=== PATIENT | male | born 1970 | race Caucasian/White ===

== ENCOUNTER → 2016-06-23 | Day surgery (SDC) | payer BC ==
[~2016-06-23] MED LIST: IBUPROFEN800 MG PO; NAPROSYN500 MG PO; NEXIUM PO; NO MEDICATIONS; PRILOSEC; SEROQUEL; TYLENOL; VICODIN 5/1 TAB 5/50 PO
--- NOTE | ~2016-06-23 | OR ---
Unit #: [id number] #: [id number] Patient: SHARRON CARLOS [id number] [address] [address] [id number] MR#: [id number] NAME: SHARRON CARLOS ROOM: Date of Procedure: 06/23/2016 Admission Date: 06/23/2016 Surgeon: Stephon Stephenson M.D. : 1970 Attending Physician: Stephon Stephenson M.D. Primary Care Physician: Alfred Mcelroy M.D. OPERATIVE REPORT PREOPERATIVE DIAGNOSES 1. Reflux symptoms resistant to medications. 2. Intermittent rectal bleeding. 3. Abdominal swelling and pressure. POSTOPERATIVE DIAGNOSES 1. Reflux symptoms resistant to medications. 2. Intermittent rectal bleeding. 3. Abdominal swelling and pressure. PROCEDURES PERFORMED 1. Esophagogastroduodenoscopy. 2. Biopsy of antrum for Helicobacter pylori testing. 3. Colonoscopy to cecum. ANESTHESIA Monitored anesthesia care. FINDINGS The patient was found on upper endoscopy to have a small hiatal hernia, mild distal gastritis, and mild distal esophagitis. On colonoscopy, the patient had normal colon to the cecum. SPECIMENS Sent to pathology. COMPLICATIONS None apparent. CONDITION The patient tolerated the procedure well. INDICATIONS FOR PROCEDURE The patient is a 46-year-old white male, who has had some intermittent reflux symptoms resistant to medications as well as abdominal swelling and pressure. He has had some intermittent bright red blood on the toilet paper. He has a family history of colon cancer. He presents at this time for evaluation by upper as well as lower endoscopy. DESCRIPTION OF PROCEDURE After obtaining informed consent, the patient was brought to the endoscopy suite and after adequate monitored anesthesia care, had the endoscope Unit #: [id number] #: [id number] Patient: SHARRON CARLOS placed through the mouth into the upper esophagus under direct vision. It was advanced to the second portion of the duodenum without difficulty with the lumen always in view. The duodenum was within normal limits, the second and third portion as well as the duodenal bulb. The pylorus opened normally. There was some mild distal gastritis present and a biopsy was obtained for Helicobacter pylori testing. On retroflexing back to the GE junction, there was a small to medium size hiatal hernia seen. No other abnormalities were found in the proximal third, middle third, or incisura. On pulling back above the GE junction, there was no stenosis, stricture, or neoplasm seen. There was some distal esophagitis. The remaining portion of the esophagus was within normal limits. Laryngeal structures were grossly normal as viewed from above. At this point in time, the colonoscope was placed through the anus and slowly advanced to the level of the cecum without difficulty with the lumen always in view. The patient had somewhat poor prep, but it was mostly thick green liquid and were able to irrigate out the vast majority to be able to see. The cecum was normal as was the ileocecal valve. The ascending colon was normal as was the hepatic flexure, transverse colon, splenic flexure, descending colon, sigmoid colon, and rectum. No diverticula were seen. No neoplasm or inflammatory changes were seen. On retroflexing in the rectum to the anorectal junction, the patient was found to have no significant abnormalities. On pulling back through the anal canal, there was no obvious abnormality seen. On digital examination, there was good sphincter tone, no masses palpable. The patient went from the endoscopy suite to the recovery area in stable condition. RECOMMENDATIONS High-fiber diet, lots of liquids, tucks or wipes p.r.n. Gastroesophageal reflux sheet given. Follow up as needed. Dictated by... Keith Redman/dorita TD: 06/23/2016 21:27 JOB #: [id number] CC: [facility] OPERATIVE REPORT X Stephon Stephenson MD X PROCEDURE OPERATIVE NOTE
== END | disposition home or self-care (01) ==
LOC: COPS 05:24
DX: K62.5 Hemorrhage of anus and rectum (principal); K44.9 Diaphragmatic hernia without obstruction or gangrene; K20.9 Esophagitis, unspecified; K29.70 Gastritis, unspecified, without bleeding; K21.9 Gastro-esophageal reflux disease without esophagitis; J40 Bronchitis, not specified as acute or chronic; F17.210 Nicotine dependence, cigarettes, uncomplicated; Z80.0 Family history of malignant neoplasm of digestive organs; Z79.1 Long term (current) use of non-steroidal anti-inflammatories (NSAID); Z79.899 Other long term (current) drug therapy; Z90.49 Acquired absence of other specified parts of digestive tract; Z98.890 Other specified postprocedural states
CPT/HCPCS: 87077; J2250